=== PATIENT | male | born 1960 | race Caucasian/White ===

== ENCOUNTER 2018-06-01 21:52 | Inpatient (IN) | END 2018-06-13 18:50 | disposition home health service (06) | DRG 856 ==

== ENCOUNTER 2018-06-25 10:48 | Inpatient (IN) | END 2018-07-05 00:15 | disposition home health service (06) | DRG 255 ==

== ENCOUNTER 2018-08-14 10:02 | Emergency (ER) | payer OTHER ==
[~2018-08-14] VITALS: Wt 73.9 kg
[~2018-08-14 10:02] MED LIST: AMLO-145 PO; FLUC200T PO; INSU100I33 SC; LACT1CAP28 PO; LEVO500T48 PO; LINA5TAB PO; METO-448 PO; NOVO3I SC
--- NOTE | 2018-08-14 11:48 | ERD ---
ER Documentation Chief Complaint Chief Complaint feels tired,sob,palpitations x 3 days,right foot diabetic ulcer HPI Patient is a 57-year-old male with hypertension and diabetes who presents with chest pain and shortness of breath. He has had a low hemoglobin but the family is unsure what the level was. The patient was sent by the primary doctor for concern for possible transfusion. The patient had some pain on deep inspiration and had a cough 2 weeks ago. There have been no fever. Upon review of old medical records this is the patient's third visit to the ER since 2018. He is currently getting antibiotics through a PICC line for a diabetic foot ulcer. ROS All systems reviewed and are negative except as per history of present illness. Medications Home Meds Active Scripts Linagliptin (TRADJENTA) 5 Mg Tablet, 5 MG PO DAILY for 30 Days, #30 TAB Prov:MYRIAM BARTON MD 07/04/18 Lactobacillus Rhamnosus GG (Culturelle) 1 Each Capsule, 1 CAP PO BID for 30 Days, #60 CAP Prov:MYRIAM BARTON MD 07/04/18 Metoprolol Tartrate* (Lopressor*) 25 Mg Tab, 25 MG PO BID for 30 Days, #60 TAB Prov:MYRIAM BARTON MD 07/04/18 Amlodipine Besylate* (Amlodipine Besylate*) 5 Mg Tablet, 5 MG PO DAILY for 30 Days, #30 TAB Prov:MYRIAM BARTON MD 07/04/18 Reported Medications Insulin Glargine,Hum.rec.anlog (Basaglar Kwikpen U-100) 100 Unit/1 Ml Insuln.pen, 25-30 UNIT SC Q, 06/25/18 Insulin Aspart* (Novolog Insulin Pen*) 100 Unit/Ml Soln, 5-10 SC .SLIDING SCALE , 06/25/18 Discontinued Scripts Levofloxacin* (Levaquin*) 500 Mg Tablet, 500 MG PO Q2D@0600, #17 TAB Prov:MYRIAM BARTON MD 07/04/18 Fluconazole* (Diflucan*) 200 Mg Tablet, 200 MG PO DAILY for 34 Days, #34 TAB Prov:MYRIAM BARTON MD 07/04/18 Allergies Allergies: Coded Allergies: No Known Allergy (Unverified , 08/14/18) PMhx/Soc History of Surgery: Yes (left foot surgery, right 3-5th toe amputations) Anesthesia Reaction: No Hx Neurological Disorder: No Hx Respiratory Disorders: No Hx Cardiac Disorders: Yes (HTN) Hx Psychiatric Problems: No Hx Miscellaneous Medical Probl: Yes (DM) Hx Alcohol Use: Yes Hx Substance Use: No Hx Tobacco Use: No Smoking Status: Never smoker FmHx Family History: diabetes Physical Exam Vitals Vital Signs Date Temp Pulse Resp B/P (MAP) Pulse Ox O2 O2 Flow FiO2 Time Delivery Rate 08/14/18 88 18 155/89 100 Room Air 12:04 (111) 08/14/18 Nasal 2 10:37 Cannula 08/14/18 98.1 88 18 146/76 99 10:06 (99) Physical Exam Const: No acute distress Head: Atraumatic Eyes: Normal Conjunctiva ENT: Normal External Ears, Nose and Mouth. Neck: Full range of motion. No meningismus. Resp: Clear to auscultation bilaterally Cardio: Regular rate and rhythm, no murmurs Abd: Soft, non tender, non distended. Normal bowel sounds Skin: Right foot wrapped with a diabetic foot ulcer Back: No midline or flank tenderness Ext: No cyanosis, or edema Neur: Awake and alert Psych: Normal Mood and Affect Result Diagram: 08/14/18 1027 08/14/18 1027 Results 24 hrs Laboratory Tests Test 08/14/18 10:27 White Blood Count 9.2 10^3/ul Red Blood Count 2.74 10^6/ul Hemoglobin 7.8 g/dl Hematocrit 24.1 % Mean Corpuscular Volume 88.0 fl Mean Corpuscular Hemoglobin 28.5 pg Mean Corpuscular Hemoglobin Concent 32.4 g/dl Red Cell Distribution Width 18.6 % Platelet Count 329 10^3/UL Mean Platelet Volume 8.6 fl Immature Granulocytes % 0.300 % Neutrophils % 50.2 % Lymphocytes % 31.2 % Monocytes % 10.0 % Eosinophils % 7.8 % Basophils % 0.5 % Nucleated Red Blood Cells % 0.0 /100WBC Immature Granulocytes # 0.030 10^3/ul Neutrophils # 4.6 10^3/ul Lymphocytes # 2.9 10^3/ul Monocytes # 0.9 10^3/ul Eosinophils # 0.7 10^3/ul Basophils # 0.1 10^3/ul Nucleated Red Blood Cells # 0.0 10^3/ul Prothrombin Time 12.9 Sec Prothrombin Time Ratio 1.0 INR International Normalized Ratio 0.96 Activated Partial Thromboplast Time 70.0 Sec Sodium Level 138 mmol/L Potassium Level 4.9 mmol/L Chloride Level 110 mmol/L Carbon Dioxide Level 20 mmol/L Anion Gap 8 Blood Urea Nitrogen 47 mg/dl Creatinine 1.90 mg/dl Est Glomerular Filtrat Rate mL/min 37 mL/min Glucose Level 87 mg/dl Calcium Level 9.6 mg/dl Total Bilirubin 0.0 mg/dl Direct Bilirubin 0.00 mg/dl Indirect Bilirubin 0.0 mg/dl Aspartate Amino Transf (AST/SGOT) 38 IU/L Alanine Aminotransferase (ALT/SGPT) 31 IU/L Alkaline Phosphatase 114 IU/L Troponin I < 0.012 ng/ml Total Protein 8.6 g/dl Albumin 4.0 g/dl Globulin 4.60 g/dl Albumin/Globulin Ratio 0.86 Procedures/MDM EKG read by me: Rate/Rhythm: Regular rate and rhythm at a rate of 88 Intervals: Normal Impression: No evidence of ischemia or arrhythmia Chest x-ray read by radiology. Patient is a 57-year-old male presents with multiple complaints. His hemoglobin is 7.8 and does not require transfusion at this time. The patient will be discharged with a copy of laboratory studies and chest x-ray report. The patient will need to follow-up closely with a primary doctor within 24-48 hours. The patient can return sooner for any worsening symptoms. Departure Diagnosis: Primary Impression: Anemia Anemia type: unspecified type Qualified Codes: D64.9 - Anemia, unspecified Condition: Fair Patient Instructions: Anemia Referrals: Your doctor Additional Instructions: Llame al doctor MAANA y hermes tyron MORENO PARA DENTRO DE 1-2 GAGNON.Dgale a la secretaria que nosotros le instruimos hacer esta moreno.Avise o llame si vagras condicin se empeora antes de la moreno. Regresa aqui si peor o no mejor. ABHI DWYER MD Aug 14, 2018 11:48
[2018-08-14 12:04] VITALS: BP 155/89; PULSE 88; RESP 18
[2018-08-22] MEDS ORDERED: AMLO5TAB4 PO (13:11)
[2018-08-22] MEDS ORDERED: METO-448 PO (13:12)
[2018-08-22] MEDS ORDERED: FER325 PO (13:14)
[2018-08-22] MEDS ORDERED: LEVO500T10 PO (13:14)
[2018-08-22] MEDS ORDERED: NOVO3I SC (13:15)
[2018-08-22] MEDS ORDERED: INSU100I33 SC (13:16)
[2018-08-22] MEDS ORDERED: DAPT500V IV (13:18)
== END 2018-08-14 12:01 | disposition home or self-care (01) ==
LOC: E/R 10:02
DX: D64.9 Anemia, unspecified (principal); I10 Essential (primary) hypertension; E11.9 Type 2 diabetes mellitus without complications; Z79.4 Long term (current) use of insulin
CPT/HCPCS: 36415; 71045; 80053; 84484; 85025; 85610; 85730; 86850; 86900; 86901; 93005; Z7502

== ENCOUNTER 2018-09-26 11:22 | Day surgery (SDC) | payer OTHER ==
[2018-09-25 15:44] VITALS: Ht 170.2 cm; Wt 76.5 kg
[2018-09-26] VITALS (14 sets, daily range): BP systolic 125–157; BP diastolic 64–82; PULSE 76–84; RESP 7–81
[~2018-09-26] VITALS: Ht 170.2 cm; Wt 76.5 kg
[~2018-09-26 11:22] MED LIST changes: -AMLO-145 PO; +AMLO5TAB4 PO; +DAPT500V IV; +FER325 PO; -FLUC200T PO; -LACT1CAP28 PO; +LEVO500T10 PO; -LEVO500T48 PO; -LINA5TAB PO
[2018-09-26] MEDS ORDERED: METF500T24 PO (12:01)
--- NOTE | 2018-09-26 12:58 | PREAC ---
Date/Time of Note Date/Time of Note DATE: 09/26/18 TIME: 12:57 Anesthesia Eval and Record Evaluation Time Pre-Procedure Interview DATE: 09/26/18 TIME: 12:57 Age 58 Sex male NPO: 8 hrs Preoperative diagnosis history of right diabetic foot wound Planned procedure right foot wound bed prep and application of split thickness skin graft Past Medical History Past Medical History: Includes Cardio: HTN, Dyslipidemia Endo: Diabetes Renal: CKD Surgery & Anesthesia Issues No known issue Meds Anticoagulation: No Beta Zahida within 24 hr: No Reason Beta Zahida not given: Pt. not on B-Zahida Reported Medications Metformin Hcl* (Metformin Hcl*) 500 Mg Tablet, 500 MG PO WITH BREAKFAST, #30 TAB 09/26/18 Insulin Glargine,Hum.rec.anlog (Basaglar Kwikpen U-100) 100 Unit/1 Ml Insuln.pen, 30 UNIT SC QHS, EA 08/22/18 Insulin Aspart* (Novolog Insulin Pen*) 100 Unit/Ml Soln, 10 UNIT SC WITH MEALS, EA 08/22/18 Ferrous Sulfate* (Ferrous Sulfate*) 325 Mg Tabec, 325 MG PO BID, TAB 08/22/18 Amlodipine Besylate* (Norvasc*) 5 Mg Tablet, 5 MG PO DAILY, TAB 08/22/18 Discontinued Reported Medications Daptomycin (Daptomycin) 500 Mg Vial, 420 MG IV every 48 hours, VIAL 420mg/8.4ml inject over 3-5 minutes 08/22/18 Levofloxacin* (Levofloxacin*) 500 Mg Tablet, 500 MG PO Q48H, TAB 08/22/18 Metoprolol Tartrate* (Lopressor*) 25 Mg Tab, 25 MG PO BID, #60 TAB 08/22/18 Meds reviewed: Yes Allergies Coded Allergies: No Known Allergy (Unverified , 09/26/18) Allergies Reviewed: Yes Labs/Studies Labs Reviewed: Reviewed by anesthesiologist test: N/A Pre-procedure Exam Last vitals Vital Signs Date Temp Pulse Resp B/P (MAP) Pulse Ox O2 O2 Flow FiO2 Time Delivery Rate 09/26/18 97.7 80 16 134/67 100 Room Air 12:24 (89) Airway: Adequate mouth opening, Adequate thyromental dist Mallampati: Mallampati II Teeth: Abnormal (upper partials) Lung: Normal Heart: Normal ASA Physical Status ASA physical status: 3 Emergency: None Planned Anesthetic General/MAC: LMA Planned Pain Management Parenteral pain med Pre-operative Attestations Prior to commencing anesthesia and surgery, the patient was re-evaluated, there was verification of: *The patient's identity *The results of appropriate recent lab work and preoperative vital signs *The above evaluation not changing prior to induction *Anesthetic plan, risk benefits, alternative and complications discussed with patient/family; questions answered; patient/family understands, accepts and wishes to proceed. SATYA WHEATLEY MD Sep 26, 2018 12:58
[2018-09-26] MEDS ORDERED: EPHEDrine SULFATE 50 MG/5 ML SYG IV PRN (13:00)
[2018-09-26] MEDS ORDERED: ONDANSETRON 4 MG INJ IV PRN (13:00)
[2018-09-26] MEDS ORDERED: FENTAnyl 50 MCG/ML VIAL IV PRN ×3 (13:00)
[2018-09-26] MEDS ORDERED: HYDROmorphONE 1 MG/5 ML IV SYRINGE IV PRN ×3 (13:00)
[2018-09-26] MEDS ORDERED: MEPERIDINE 25 MG INJ IV PRN (13:00)
[2018-09-26] MEDS ORDERED: OXYCODONE/ACETAMINOPHEN (5/325) TAB PO PRN (13:00)
[2018-09-26] MEDS ORDERED: DIPHENHYDRAMINE 50 MG INJ IV PRN (13:00)
[2018-09-26] MEDS ORDERED: LABETALOL HCL 20MG INJ IV PRN (13:00)
[2018-09-26] MEDS ORDERED: hydrALAzine 20 MG INJ IV PRN (13:00)
[2018-09-26] MEDS ORDERED: PROCHLORPERAZINE 10 MG INJ IV PRN (13:00)
[2018-09-26] MEDS ORDERED: POLYMYXIN B 500000 UNIT INJ ONE (13:10)
[2018-09-26] MEDS ORDERED: BACITRACIN 50000 UNITS INJ ONE (13:11)
[2018-09-26] MEDS ORDERED: LIDOCAINE 2% (SDV) 5 ML INJ ONE (13:23)
[2018-09-26] MEDS ORDERED: FENTAnyl 50 MCG/ML VIAL ONE (13:23)
[2018-09-26] MEDS ORDERED: MIDAZOLAM 1 MG/ML 2 ML INJ ONE (13:23)
[2018-09-26] MEDS ORDERED: PROPOFOL 20 ML ONE (13:23)
--- NOTE | 2018-09-26 13:39 | HPN ---
Date/Time of Note Date/Time of Note DATE: 09/26/18 TIME: 13:39 Interval H&P Admission Note Pt. seen H&P reviewed: No system changes MARCELLA BASSETT DPM Sep 26, 2018 13:39
[2018-09-26] MEDS ORDERED: MINERAL OIL LIGHT 10 ML VIAL ONE (13:43)
[2018-09-26] MEDS ORDERED: ONDANSETRON 4 MG INJ ONE (13:47)
[2018-09-26] MEDS ORDERED: FAMOTIDINE 20 MG INJ ONE (13:47)
[2018-09-26] MEDS ORDERED: CEFAZOLIN 1 GM INJ ONE (13:48)
[2018-09-26] MEDS ORDERED: LIDOCAINE 1%/EPI (1:100,000) (MDV) 20 ML ONE (13:53)
[2018-09-26] MEDS ORDERED: LIDOCAINE 1% (MPF) 30 ML INJ ONE (13:53)
--- NOTE | 2018-09-26 14:34 | PDOCDIS ---
Discharge Instructions CONDITION [id number] Patient Condition: [id number] Good HOME CARE INSTRUCTIONS: [id number] Diet Instructions: Bqiyx7h diabetic, carbohydrate controlled ACTIVITY: [id number] Activity Restrictions: [id number] No Weight Bearing (NON WEIGHT BEARING TO RIGHT LOWER EXTREMITY) FOLLOW UP/APPOINTMENTS Follow-up Plan FOLLOW UP [facility] 1 WEEK. KEEP DRESSINGS CLEAN DRY AND INTACT. REMAIN NON WEIGHT BEARING TO RIGHT LOWER EXTREMITY. MARCELLA BASSETT DPM Sep 26, 2018 14:34
--- NOTE | 2018-09-26 14:38 | SIPON ---
Date/Time of Note Date/Time of Note DATE: 09/26/18 TIME: 14:37 Operative Report Preoperative Diagnosis Right diabetic foot ulcer DM2 with peripheral neuropathy Hx of partial foot amputation Postoperative Diagnosis Right diabetic foot ulcer DM2 with peripheral neuropathy Hx of partial foot amputation Operation/Procedure Performed right foot wound bed preparation application of split thickness skin graft right foot Surgeon see signature line inventory control assistant None Anesthesia: general Estimated blood loss: 0 - 10 ml's Transfusion Required none Specimen None Grafts/Implants none Complications none MARCELLA BASSETT DPM Sep 26, 2018 14:38
--- NOTE | 2018-09-26 14:38 | OPR ---
Date/Time of Note Date/Time of Note DATE: 09/26/18 TIME: 14:38 Operative Report Preoperative Diagnosis Right diabetic foot ulcer DM2 with peripheral neuropathy Hx of partial foot amputation Postoperative Diagnosis Right diabetic foot ulcer DM2 with peripheral neuropathy Hx of partial foot amputation Operation/Procedure Performed right foot wound bed preparation application of split thickness skin graft right foot Surgeon Faisal Bassett DPM Account Maintenance Representative none Anesthesia Type: general Estimated Blood Loss: 0 - 10 ml's Transfusion none Specimen none Grafts/Implants none Complications none Indications 58 y/o diabetic male patient with previous foot amputation and diabetic ulcer. Patient has had good progress of his right foot ulceration site and is amenable to skin grafting with attempt for a delayed primary closure. All of the patient's questions and concerns were addressed no promises or guarantees were given. Procedure Description Patient was brought into the OR and placed on the OR table in the supine position. The right lower extremity was scrubbed, prepped, and draped in the usual aseptic manner. A formal time out was conducted. Attention was directed to the right foot. Using sharp debridement biofilm, fibrotic tissue, and non viable tissue was removed in order to prepare the wound bed for receiving the split thickness skin graft. Once adequate bleeding wound bed was appreciated the portion of the wound was sutured to approximate skin edges using 3-0 prolene. Next using a dermatome a split thickness skin graft was harvested from the right lower extremity and was sutured in place at the proximal ulceration aspect using 3-0 prolene. Xeroform and dry sterile dressings were applied to the surgical site. Patient was transferred to the PACU with vital signs stable and neurovascular status intact. FAISAL BASSETT DPM Sep 26, 2018 14:38
--- NOTE | 2018-09-26 14:53 | PAC ---
Date/Time of Note Date/Time of Note DATE: 09/26/18 TIME: 14:52 Post-Anesthesia Notes Post-Anesthesia Note Last documented vital signs Vital Signs Date Temp Pulse Resp B/P (MAP) Pulse Ox O2 O2 Flow FiO2 Time Delivery Rate 09/26/18 97.7 80 16 134/67 100 Room Air 12:24 (89) Activity: WNL Respiratory function: WNL Cardiovascular function: WNL Mental status: Baseline Pain reasonably controlled: Yes Hydration appropriate: Yes Nausea/Vomiting absent: Yes Comments BP: 138/72 HR: 80 RR: 15 T: 98 SaO2: 100% SATYA WHEATLEY MD Sep 26, 2018 14:52
[2018-09-26] MEDS ORDERED: INSULIN ASPART [NOVOLOG] 3 ML PEN SC ONE (15:00)
== END 2018-09-26 16:15 | disposition home or self-care (01) ==
LOC: SDS 11:22
PROVIDERS: ATTEND Podiatrist Foot & Ankle Surgery
DX: E11.621 Type 2 diabetes mellitus with foot ulcer (principal); E11.42 Type 2 diabetes mellitus with diabetic polyneuropathy; I12.9 Hypertensive chronic kidney disease with stage 1 through stage 4 chronic kidney disease, or unspecified chronic kidney disease; N18.9 Chronic kidney disease, unspecified; E78.5 Hyperlipidemia, unspecified
CPT/HCPCS: 15120; 82962; J0690; J2250; J2405; J3010; Z7512; Z7610